=== PATIENT | male | born 1980 | race Caucasian/White ===

== ENCOUNTER 2024-10-14 07:34 | Emergency (ER) | payer OTHER, SELFPAY ==
[2024-10-14 07:37] VITALS: BP 125/84; PULSE 90; TEMP 37.3; O2SAT 97; BMI 27.1
--- NOTE | 2024-10-14 07:54 | ED.GENADUL1 ---
HPI HPI - General Adult General Chief complaint: Headache Stated complaint: headache, back pain, chills Time Seen by Provider: 10/14/24 07:37 Source: patient Mode of arrival: walk-in History of Present Illness HPI narrative: 44-year-old male presents for cough and bodyaches. He has had it for about 36 hours. He did not have an influenza vaccination this past season and 2 of his children were sick last week for 24 hours. Related Data Previous Rx's ?Medication ?Instructions ?Recorded ondansetron 4 mg disintegrating 4 mg PO Q6H PRN nausea and 10/14/24 tablet vomiting #20 tabs Allergies Allergy/AdvReac Type Severity Reaction Status Date / Time No Known Drug Allergies Allergy Verified 10/14/24 07:39 Opioid HPI Opioid Management Most Recent Opioid Data: No Data to Display Review of Systems ROS Narrative A ten point review of systems is negative except as noted above. PFSH PFSH Social History Little interest or pleasure in doing things: not at all Feeling down, depressed, or hopeless: not at all Exam Narrative Exam Narrative: Nurses note and vital signs reviewed and patient is not hypoxic. General: The patient appears well and in no apparent distress. Patient is resting comfortably on cart. Skin: Warm, dry, no pallor noted. There is no rash noted. Head: Normocephalic, atraumatic Eye: Normal conjunctiva, no drainage Ears, Nose, Mouth, and Throat: oral mucosa is moist. Nares patent. Cardiovascular: Regular Rate and Rhythm, not tachycardic Respiratory: Patient is in no distress, no accessory muscle use, lungs are clear to auscultation, no wheezing, rales or rhonchi Back: non-tender GI: Soft and nontender Musculoskeletal: The patient has no evidence of calf tenderness, no pitting edema, symmetrical pulses noted bilaterally Neurological: A&O, normal speech Psychiatric: Cooperative Constitutional Vital Signs, click to edit/add: Last Vital Signs Temp 99.2 F 10/14/24 07:37 Pulse 90 10/14/24 07:37 Resp 16 10/14/24 07:37 BP 125/84 10/14/24 07:37 Pulse Ox 97 10/14/24 07:37 O2 Del Method Room Air 10/14/24 07:37 Course Vital Signs Vital signs: Vital Signs Temperature 99.2 F 10/14/24 07:37 Pulse Rate 90 10/14/24 07:37 Respiratory Rate 16 10/14/24 07:37 Blood Pressure 125/84 10/14/24 07:37 Pulse Oximetry 97 10/14/24 07:37 Oxygen Delivery Method Room Air 10/14/24 07:37 Temperature 99.2 F 10/14/24 07:37 Pulse Rate 90 10/14/24 07:37 Respiratory Rate 16 10/14/24 07:37 Blood Pressure 125/84 10/14/24 07:37 Pulse Oximetry 97 10/14/24 07:37 Oxygen Delivery Method Room Air 10/14/24 07:37 Medical Decision Making MDM Narrative Medical decision making narrative: COVID is negative and influenza is positive. He was given a note to be off work the rest of the week and a prescription for Zofran. Treatment diagnosis and follow-up were discussed with the patient. Differential Diagnosis Differential Diagnosis: Influenza, COVID, viral URI Lab Data Lab results reviewed: Yes I reviewed the patient's lab results Labs: Lab Results 10/14/24 Range/Units 07:35 Influenza Type A Ag Positive A Influenza Type B Ag Negative SARS-CoV-2 Ag (CV2AG) Negative (NEGATIVE) Discharge Plan Discharge Chief Complaint: Headache Clinical Impression: Influenza Patient Disposition: Home, Self-Care Time of Disposition Decision: 08:19 Condition: Good Mode of Transportation: Private Vehicle Prescriptions / Home Meds: New ondansetron 4 mg tablet,disintegrating 4 mg PO Q6H PRN (Reason: nausea and vomiting) Qty: 20 0RF Print Language: [place] Instructions: Influenza (ED) Referrals: Norman Sepulveda MD [Primary Care Provider] - 1 week
[2024-10-14 08:08] LABS: Influenza Virus A Antigen Positive; Internal Control Within Normal Limits; SARS-CoV-2 Ag NEGATIVE (NEGATIVE)
[2024-10-14 08:09] LABS: Influenza Virus B Antigen Negative; Internal Control Within Normal Limits
[2024-10-14 08:30] VITALS: O2SAT 97
== END 2024-10-14 08:32 | disposition home or self-care (01) ==
PROVIDERS: Emergency Provider Emergency Medicine; PCP Family Medicine
DX: J10.1 Influenza due to other identified influenza virus with other respiratory manifestations (principal)
CPT/HCPCS: 87804; 87811; 99283